=== PATIENT | female | born 1995 | race Two or more races ===

== ENCOUNTER 2016-09-17 03:08 | Emergency (ER) | payer MEDICAID ==
[~2016-09-17] VITALS: Ht 160 cm; Wt 73.5 kg
[~2016-09-17 03:08] MED LIST: ASPITAB34
[2016-09-17 03:46] LABS: Basophils # (auto) 0 uL; Basophils % (auto) 0.4 % (0.0-2.0); Eosinophils # (auto) 0.2 uL; Eosinophils % (auto) 1.7 % (0.0-7.0); Hematocrit 37.2 % (36.0-46.0); Hemoglobin 12.3 g/dL (12.2-16.2); Lymphocytes # (auto) 1.7 uL; Lymphocytes % (auto) 18.2 % (10.0-50.0); Mean Corpuscular Volume 93.8 fL (80.0-100.0); Mean Platelet Volume 8.6 fL (7.4-10.4); Monocytes # (auto) 0.4 uL; Monocytes % (auto) 4.5 % (0.0-12.0); Neutrophils # (auto) 7.1 uL; Neutrophils % (auto) 75.2 % (37.0-80.0); Platelet Count (auto) 312 10^3/uL (140-450); Red Cell Distribution Width 13.5 % (11.6-16.0); White Blood Cell 9.4 10^3/uL (4.4-10.8)
[2016-09-17 04:08] LABS: INR 0.91 (0.9-1.15); Partial Thromboplastin Time 28.3 sec (22.64-33.71); Prothrombin Time 9.4 sec (9.37-12.3)
[2016-09-17 04:18] LABS: Albumin 3.4 g/dL (3.4-5.0); Bilirubin, Total 0.1 mg/dL (0.2-1.0); Potassium 4.1 mmol/L (3.5-5.1); Total Protein 7.4 g/dL (6.4-8.2)
[2016-09-17 08:13] LABS: Urine Bilirubin Negative (Negative); Urine Color Yellow (Yellow); Urine Glucose Normal (Normal); Urine Mucus FEW (None Seen); Urine Nitrite Negative (Negative); Urine RBC 22 /hpf (0 - 4); Urine Squamous Epithelial Cell FEW /hpf (<5); Urine Urobilinogen Normal (Negative)
[2016-09-17 08:14] LABS: Urine Blood 1+ /uL (Negative); Urine Ketone 2+ (Negative)
[2016-09-17] MEDS ORDERED: cefTRIAXone 1GM/50ML D5W 50 ML IV ONE (09:00)
[2016-09-17 09:20] VITALS: BP 129/74
== END 2016-09-17 10:45 | disposition home or self-care (01) ==
LOC: ER 03:15
DX: O23.42 Unspecified infection of urinary tract in pregnancy, second trimester (principal); O26.852 Spotting complicating pregnancy, second trimester; O99.322 Drug use complicating pregnancy, second trimester; F12.10 Cannabis abuse, uncomplicated; Z3A.17 17 weeks gestation of pregnancy
CPT/HCPCS: 36415; 76805; 80053; 81001; 84702; 85025; 85049; 85610; 85730; 96365; 99285; J0696

== ENCOUNTER 2017-05-28 08:35 | Emergency (ER) | payer MEDICAID ==
[~2017-05-28] VITALS: Ht 160 cm; Wt 77.1 kg
[2017-05-28 09:06] VITALS: BP 155/79
[2017-05-28] MEDS ORDERED: cefTRIAXone SOD 1,000 MG VL IM ONE (09:30)
== END 2017-05-28 09:45 | disposition home or self-care (01) ==
LOC: ER 08:35
DX: R23.8 Other skin changes (principal); L08.9 Local infection of the skin and subcutaneous tissue, unspecified; Z79.899 Other long term (current) drug therapy
CPT/HCPCS: 96372; 99283; J0696

== ENCOUNTER 2017-09-13 09:01 | Inpatient (IN) | payer MEDICAID ==
[~2017-09-13] VITALS: Ht 160 cm; Wt 90.2 kg
[2017-09-13] MEDS ORDERED: SODIUM CHLORIDE 0.9% 1,000 ML IVB ONE (12:33)
[2017-09-13] MEDS ORDERED: cefTRIAXone 1GM/10ml IVPUSH 10 ML IV ONE (12:45)
[2017-09-13 13:04] LABS: Basophils # (auto) 0.1 uL; Basophils % (auto) 0.9 % (0.0-2.0); Eosinophils # (auto) 0.1 uL; Eosinophils % (auto) 1.1 % (0.0-7.0); Hematocrit 39.1 % (36.0-46.0); Hemoglobin 12.9 g/dL (12.2-16.2); Lymphocytes # (auto) 1.6 uL; Lymphocytes % (auto) 19.4 % (10.0-50.0); Mean Corpuscular Hemoglobin 29.4 pg (28.0-32.0); Mean Corpuscular Hgb Conc. 32.9 g/dL (32.0-36.0); Mean Corpuscular Volume 89.4 fL (80.0-100.0); Monocytes # (auto) 0.4 uL; Monocytes % (auto) 5.3 % (0.0-12.0); Neutrophils % (auto) 73.3 % (37.0-80.0); Platelet Count (auto) 307 10^3/uL (140-450); Red Blood Cells 4.37 10^6/uL (4.0-5.20); Red Cell Distribution Width 14.4 % (11.8-14.3); White Blood Cell 8.2 10^3/uL (4.4-10.8)
[2017-09-13 13:19] LABS: Alanine Aminotransferase 20 U/L (13-56); Albumin 3.5 g/dL (3.4-5.0); Alkaline Phosphatase 108 U/L (45-117); Anion Gap 11 (5-15); Aspartate Aminotransferase 14 U/L (15-37); BUN/Creatinine Ratio 23.5; Bilirubin, Total 0.4 mg/dL (0.2-1.0); Blood Urea Nitrogen 12 mg/dL (7-18); Calcium 8.3 mg/dL (8.5-10.1); Carbon Dioxide 22 mmol/L (21-32); Chloride 105 mmol/L (98-107); GFR African American 194 mL/min; GFR Non-African American 160 mL/min; Glucose 89 mg/dL (74-106); Magnesium 2.2 mg/dL (1.6-2.6); Potassium 3.8 mmol/L (3.5-5.1); Sodium 138 mmol/L (136-145); Total Protein 7.6 g/dL (6.4-8.2)
[2017-09-13 13:20] LABS: INR 0.89 (0.9-1.15); Partial Thromboplastin Time 30.6 sec (22.64-33.71); Prothrombin Time 9.7 sec (9.37-12.3)
[2017-09-13] MEDS ORDERED: TETANUS-DIPTH-ACEL PERTUSSIS 0.5ML SYRG IM ONE (13:30)
[2017-09-13] MEDS ORDERED: HYDROcodone-ACET 10/325MG TAB PO ONE (13:30)
[2017-09-13 13:39] LABS: Urine Bacteria NONE SEEN /hpf (None Seen); Urine Blood Negative /uL (Negative); Urine Hyaline Cast FEW /lpf (0 - 2); Urine Mucus FEW (None Seen); Urine Specific Gravity 1.027 (1.001-1.035); Urine WBC 3 /hpf (0 - 5)
[2017-09-13] MEDS ORDERED: HYDROcodone-ACET 5/325MG TAB PO PRN (16:00)
[2017-09-13] MEDS ORDERED: TEMAZEPAM 15 MG CAP PO PRN (16:00)
[2017-09-13] MEDS ORDERED: ONDANSETRON HCL 4 MG/2 ML VIAL IV PRN (16:00)
[2017-09-13] MEDS ORDERED: MORPHINE SULFATE 10 MG/ML INJ 1ML SDV IV PRN (16:00)
[2017-09-13] MEDS ORDERED: CLINDAMYCIN 300MG IV 50 ML IV ONE (16:00)
[2017-09-13] MEDS ORDERED: ACETAMINOPHEN 325 MG TAB PO PRN (16:00)
[2017-09-13] MEDS ORDERED: DOCUSATE SOD 100 MG CAP PO PRN (16:00)
[2017-09-13 18:00] VITALS: BP 107/53
[2017-09-13] MEDS ORDERED: CEPH500C PO (18:37)
[2017-09-13] MEDS ORDERED: SULF400T11 PO (18:37)
[2017-09-13] MEDS ORDERED: IBUP800T24 PO (18:37)
[2017-09-13] MEDS: FAMOTIDINE 20 MG TAB PO SCH (21:40)
[2017-09-13] MEDS: CLINDAMYCIN 300MG IV 50 ML IV SCH (21:40)
[2017-09-13] MEDS: SODIUM CHLOR 0.9% PF (SALINE LOCK) 10ML VIAL IV SCH (21:41)
[2017-09-13 22:00] VITALS: BP 134/72
[2017-09-14 05:08] VITALS: BP 115/58
[2017-09-14] MEDS: SODIUM CHLOR 0.9% PF (SALINE LOCK) 10ML VIAL IV SCH ×3 (05:39→21:31)
[2017-09-14] MEDS: CLINDAMYCIN 300MG IV 50 ML IV SCH ×3 (05:39→21:31)
[2017-09-14 06:06] LABS: Basophils # (auto) 0 uL; Basophils % (auto) 0.4 % (0.0-2.0); Eosinophils # (auto) 0.1 uL; Eosinophils % (auto) 1.8 % (0.0-7.0); Hematocrit 36.9 % (36.0-46.0); Hemoglobin 12.2 g/dL (12.2-16.2); Lymphocytes # (auto) 1.6 uL; Lymphocytes % (auto) 27.6 % (10.0-50.0); Mean Corpuscular Hemoglobin 29.9 pg (28.0-32.0); Mean Corpuscular Hgb Conc. 33.2 g/dL (32.0-36.0); Mean Corpuscular Volume 90.1 fL (80.0-100.0); Monocytes # (auto) 0.4 uL; Neutrophils # (auto) 3.7 uL; Neutrophils % (auto) 64.2 % (37.0-80.0); Nucleated Red Blood Cells % 0.1 %; Platelet Count (auto) 270 10^3/uL (140-450); Red Blood Cells 4.09 10^6/uL (4.0-5.20); Red Cell Distribution Width 14.6 % (11.8-14.3); White Blood Cell 5.8 10^3/uL (4.4-10.8)
[2017-09-14 06:31] LABS: BUN/Creatinine Ratio 31.4; Calcium 8.3 mg/dL (8.5-10.1); Potassium 3.9 mmol/L (3.5-5.1)
[2017-09-14 06:34] LABS: Bilirubin, Total 0.3 mg/dL (0.2-1.0); Total Protein 6.7 g/dL (6.4-8.2)
[2017-09-14 09:00] VITALS: BP 135/55
[2017-09-14] MEDS: cefTRIAXone 1GM/10ml IVPUSH 10 ML IV SCH (09:13)
[2017-09-14] MEDS: MULTIPLE VITAMIN TAB PO SCH (09:13)
[2017-09-14] MEDS: FAMOTIDINE 20 MG TAB PO SCH ×2 (09:13→21:31)
[2017-09-14 13:00] VITALS: BP 127/67
[2017-09-14] MEDS: BOOST PLUS 8 ounce PO SCH ×2 (13:49→19:27)
[2017-09-14 17:00] VITALS: BP 151/95
[2017-09-14 18:20] VITALS: BP 150/50
[2017-09-14 21:30] VITALS: BP 145/70
[2017-09-15 05:00] VITALS: BP 107/60
[2017-09-15 05:43] LABS: Basophils # (auto) 0 uL; Basophils % (auto) 0.7 % (0.0-2.0); Eosinophils # (auto) 0.2 uL; Eosinophils % (auto) 2.3 % (0.0-7.0); Hematocrit 36.2 % (36.0-46.0); Lymphocytes # (auto) 1.7 uL; Lymphocytes % (auto) 25.2 % (10.0-50.0); Mean Corpuscular Hemoglobin 29.8 pg (28.0-32.0); Mean Corpuscular Hgb Conc. 33.2 g/dL (32.0-36.0); Mean Corpuscular Volume 89.7 fL (80.0-100.0); Monocytes # (auto) 0.4 uL; Monocytes % (auto) 6.7 % (0.0-12.0); Neutrophils # (auto) 4.3 uL; Neutrophils % (auto) 65.1 % (37.0-80.0); Nucleated Red Blood Cells % 0.1 %; Platelet Count (auto) 276 10^3/uL (140-450); Red Blood Cells 4.04 10^6/uL (4.0-5.20); Red Cell Distribution Width 14.3 % (11.8-14.3); White Blood Cell 6.6 10^3/uL (4.4-10.8)
[2017-09-15 06:03] LABS: Calcium 8.5 mg/dL (8.5-10.1); Potassium 3.5 mmol/L (3.5-5.1)
[2017-09-15] MEDS: CLINDAMYCIN 300MG IV 50 ML IV SCH ×2 (06:04→13:22)
[2017-09-15 06:05] LABS: BUN/Creatinine Ratio 14.3
[2017-09-15] MEDS: SODIUM CHLOR 0.9% PF (SALINE LOCK) 10ML VIAL IV SCH ×2 (06:05→13:22)
[2017-09-15 09:00] VITALS: BP 118/64
[2017-09-15] MEDS: BOOST PLUS 8 ounce PO SCH ×2 (09:15→12:01)
[2017-09-15] MEDS: FAMOTIDINE 20 MG TAB PO SCH (09:25)
[2017-09-15] MEDS: MULTIPLE VITAMIN TAB PO SCH (09:25)
[2017-09-15] MEDS: cefTRIAXone 1GM/10ml IVPUSH 10 ML IV SCH (09:25)
== END 2017-09-15 14:35 | disposition home or self-care (01) | DRG 383 ==
LOC: ER 09:01 → OVERFLOW 09:02 → WEST WING 17:49
PROVIDERS: ADMIT Internal Medicine; ATTEND Internal Medicine
DX: L03.211 Cellulitis of face (principal); E44.0 Moderate protein-calorie malnutrition; H05.011 Cellulitis of right orbit; E87.1 Hypo-osmolality and hyponatremia; E88.09 Other disorders of plasma-protein metabolism, not elsewhere classified; N39.0 Urinary tract infection, site not specified; S00.261A Insect bite (nonvenomous) of right eyelid and periocular area, initial encounter; W57.XXXA Bitten or stung by nonvenomous insect and other nonvenomous arthropods, initial encounter; Z82.49 Family history of ischemic heart disease and other diseases of the circulatory system; Z83.3 Family history of diabetes mellitus; Y93.89 Activity, other specified; Y92.89 Other specified places as the place of occurrence of the external cause; Y99.8 Other external cause status
CPT/HCPCS: 36415; 70450; 71045; 80048; 80053; 81001; 83605; 83735; 84484; 85025; 85610; 85730; 87040; 90715; 94761; 96361; 96365; 96375; J3490

== ENCOUNTER → 2022-12-18 | Emergency (ER) | payer MEDICAID ==
[~2022-12-18] VITALS: Ht 162.6 cm; Wt 102.7 kg
[~2022-12-18] MED LIST changes: -ASPITAB34; +CEPH-510 PO; +CEPH500C PO; +IBUP800T27 PO; +SULF400T11 PO
[2022-12-18 06:37] VITALS: BP 143/85
[2022-12-18 07:18] LABS: Basophils # (auto) 0.1 10 ^3/uL (0-0.2); Basophils % (auto) 0.9 % (0.0-2.0); Eosinophils # (auto) 0.2 10 ^3/uL (0-0.8); Eosinophils % (auto) 2.6 % (0.0-7.0); Hematocrit 39.4 % (36.0-46.0); Hemoglobin 13.3 g/dL (12.2-16.2); Lymphocytes % (auto) 21.9 % (10.0-50.0); Mean Corpuscular Hemoglobin 30.9 pg (28.0-32.0); Mean Corpuscular Hgb Conc. 33.7 g/dL (32.0-36.0); Mean Corpuscular Volume 91.6 fL (80.0-100.0); Monocytes # (auto) 0.3 10 ^3/uL (0-1.3); Monocytes % (auto) 3.8 % (0.0-12.0); Neutrophils # (auto) 6.5 10 ^3/uL (1.6-8.6); Neutrophils % (auto) 70.8 % (37.0-80.0); Red Cell Distribution Width 14.5 % (11.8-14.3); White Blood Cell 9.1 10^3/uL (4.4-10.8)
[2022-12-18 07:20] LABS: Urine Bacteria FEW /hpf (None Seen); Urine Blood Negative /uL (Negative); Urine Mucus FEW (None Seen); Urine WBC 14 /hpf (0 - 5)
[2022-12-18 07:55] LABS: Albumin 3.1 g/dL (3.4-5.0); Calcium 9.2 mg/dL (8.5-10.1); Potassium 4.2 mmol/L (3.5-5.1)
[2022-12-18 07:57] LABS: BUN/Creatinine Ratio 17.8 (10.0-20.0)
[2022-12-18 08:00] LABS: Bilirubin, Total 0.2 mg/dL (0.2-1.0); Total Protein 7.3 g/dL (6.4-8.2)
== END | disposition left against medical advice (07) ==
LOC: ER 06:24
DX: O23.41 Unspecified infection of urinary tract in pregnancy, first trimester (principal); N39.0 Urinary tract infection, site not specified; R10.2 Pelvic and perineal pain; F12.10 Cannabis abuse, uncomplicated; Z3A.01 Less than 8 weeks gestation of pregnancy
CPT/HCPCS: 36415; 80053; 81001; 81025; 83690; 84702; 85025

== ENCOUNTER 2023-05-18 11:06 | Emergency (ER) | payer MEDICAID ==
[~2023-05-18] VITALS: Ht 160 cm; Wt 115.3 kg
[~2023-05-18 11:06] MED LIST changes: +IBUP-1456 PO; -IBUP800T27 PO
[2023-05-18 15:56] VITALS: BP 129/72; PULSE 113; RESP 20; TEMP 97.5; O2SAT 99
== END 2023-05-18 15:57 | disposition left against medical advice (07) ==
LOC: ER 11:06
DX: O26.892 Other specified pregnancy related conditions, second trimester (principal); R21 Rash and other nonspecific skin eruption; Z3A.27 27 weeks gestation of pregnancy; Z53.21 Procedure and treatment not carried out due to patient leaving prior to being seen by health care provider

== ENCOUNTER 2025-07-08 18:47 | Inpatient (IN) | payer MEDICAID ==
[~2025-07-08] VITALS: Ht 160 cm; Wt 119.2 kg
[2025-07-08 19:09] LABS: Hematocrit 40.9 % (36.0-46.0); Hemoglobin 13.9 g/dL (12.2-16.2); Mean Corpuscular Hemoglobin 30.6 pg (28.0-32.0); Mean Corpuscular Volume 90.1 fL (80.0-100.0); Nucleated Red Blood Cells % 0.2 %
[2025-07-08 19:20] LABS: Base Excess -2.4 mmol/L (-2.0-3.0)
[2025-07-08 19:25] LABS: Albumin 4.5 g/dL (3.2-4.8); Anion Gap 13 (5-15); BUN/Creatinine Ratio 9.3 (10.0-20.0); Calcium 9.6 mg/dL (8.7-10.4); Carbon Dioxide 21 mmol/L (20-31); Potassium 4.0 mmol/L (3.5-5.1); Total Protein 7.6 g/dL (5.7-8.2)
[2025-07-08 19:26] LABS: Bilirubin, Total 0.3 mg/dL (0.2-1.0)
[2025-07-08 19:31] LABS: Alanine Aminotransferase 65 U/L (7-40); Alkaline Phosphatase 220 U/L (46-116); Blood Urea Nitrogen 8 mg/dL (9-23); Chloride 95 mmol/L (98-107); Sodium 129 mmol/L (136-145)
[2025-07-08 19:35] LABS: Glucose 669 mg/dL (74-106)
--- NOTE | 2025-07-08 19:36 | ED.PDOC ---
History of present illness HPI Comments CAMRON: HPI: Poor Historian. 30-year-old female presents to emergency department for symptoms of polydipsia polyuria and feels dehydrated and some blurry vision and dry mouth for at least one-week. She thinks she is developing diabetes like her sister. She is not on any medications. Past Medical History: Denies any Past Surgical History: REVIEW OF SYSTEMS: CONSTITUTIONAL: Denies acute: fever, diaphoresis, chills, HEAD: Denies acute: headache, photophobia Eyes: Denies acute: Double vision, vision loss, eye pain, eye discharge. EARS: Denies acute: tinnitus, hearing loss, ear discharge, ear pain, THROAT: Denies acute: sore throat, swelling, difficulty swallowing , pain with swallowing, change in voice. NECK: Denies acute: neck pain, neck swelling, stiff neck. HEART: Denies acute : chest pain, palpitations, LUNGS: Denies acute: SOB, wheezing, cough, hemoptysis ABDOMEN: Denies acute: abdominal pain, , Vomiting, diarrhea, melena , hematemesis, hematochezia SKIN: Denies acute: rash, redness, lesions, itchiness. EXTREMITIES: Denies acute: calf pain, numbness, tingling, weakness, denies pain in extremity. Denies acute: Low back pain. Neuro: Denies acute: focal neurological deficit, motor or sensory focal neurological deficit, tremors, seizure like activity, confusion, dizziness, change in mental status, loss of bowel or bladder function, cauda equina like symptoms. : Denies acute: dysuria, hematuria, flank pain, increase in urinary frequency. PSYCH: Denies acute: hallucination, suicidal ideation, homicidal ideation. FEMALE: Denies acute: abnormal vaginal bleeding, foul odor, unusual discharge. PHYSICAL EXAM: General: ----mild----acute distress, awake and alert. Head: normocephalic, atraumatic. No raccoon's eyes, no art sign. Neck: supple, trachea is midline, no swelling. Throat: Normal phonation. Eyes:, no erythema, no purulent discharge, no proptosis, no icterus. Heart: regular tachycardic,, no significant murmur appreciated. Lungs: no apparent respiratory distress, Able to speak in full sentences. No wheezing, no rhonchi, no crackles. No stridors Clear to auscultation bilaterally. Abdomen: non tender to palpation, non distended, soft, no guarding, no rebound, + bowel sounds. Obese Neuro: Awake, Alert, oriented to name, self, situation, follows commands GCS=15. Speech is normal. Skin: no petechia, no purpura, no cyanosis, non-pale, not jaundice. Lower extremities: --no - Pitting edema no deformity, no focal swelling, no calf TTP. Makes eye contact. moves all four extremities. Face: no apparent facial droop. Ambulating in the ED independently. Ears: Normal appearing TM b/l, ED COURSE: DISCLAIMER: This medical document was created using an electronic medical record system with voice recognition software and computerized dictation system. Although this document has been carefully reviewed, there might still be some phonetic and typographical errors. Occasional wrong-word or "sound-alike" substitutions may have occurred due to the inherent limitations of voice recognition software. These areas are purely typographical due to imperfections of the software programs and do not reflect any compromise in the patient's medical care. Please read the chart carefully and recognize, using context, where these substitutions have occurred. Chief Complaint: Hyperglycemia Time Seen by MD: 18:53 Primary Care Provider: DR ZAVALA History of present illness: Nurses Notes, Allergies Allergies: Coded Allergies: NO KNOWN ALLERGIES (Unverified , 08/21/11) Home Meds Active Scripts Cephalexin ( Keflex 500) 500 Mg Cap, 1 CAP PO TID for 7 Days, #21 CAP Prov:EVELYN PRABHAKAR MD 12/18/22 Reported Medications Cephalexin Monohydrate (Cephalexin) 500 Mg Cap, 500 MG PO Q12HR, MG 09/13/17 Sulfamethoxazole-Trimethoprim (Bactrim) 1 Tab Tab, 1 TAB PO BID, MG 09/13/17 Ibuprofen (Ibuprofen) 800 Mg Tab, 800 MG PO Q6HP PRN for MILD PAIN OR TEMP>100.4, MG 09/13/17 Information Source: Patient Mode of Arrival: Ambulatory Past Medical History PAST MEDICAL HISTORY: Denies 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 Was a procedure done?: No Differential Diagnosis (DM) Differential Diagnosis: Dehydration, Diabetic Coma, DKA, Electrolyte Abnormality, Encephalopathy, Gastritis, Gastroenteritis, Hepatitis, Hyperglycemia, Hyperosmolar State, Hypoglycemia, Pancreatitis, Pyelonephritis, UTI X-Ray, Labs, Meds, VS Vital Signs Date Time Temp Pulse Resp B/P (MAP) Pulse Ox O2 Delivery O2 Flow Rate FiO2 07/08/25 18:51 99.1 114 18 150/98 98 99.1 Lab Test 07/08/25 20:14 07/08/25 19:15 07/08/25 19:01 07/08/25 18:56 Range/Units Urine Color Colorless Yellow Urine Clarity Clear Clear Urine pH 6.0 5.0-9.0 Urine Specific [place] 1.039 H 1.001-1.035 Urine Protein Negative Negative Urine Ketones 1+ H Negative Urine Blood 2+ H Negative /uL Urine Nitrite Negative Negative Urine Bilirubin Negative Negative Urine Urobilinogen Normal Negative mg/dL Urine Leukocyte Esterase 2+ Negative /uL Urine RBC 5 0 - 4 /hpf Urine Microscopic WBC 11 H 0-5 /HPF Urine Squamous Epithelial Cells Few <5 /hpf Urine Bacteria None seen None Seen /hpf Urine Yeast with Hyphae Present /hpf Urine Yeast (Budding) Moderate None Seen /hpf Urine Glucose 4+ H Normal mg/dL Urine Opiates Screen Neg NEGATIVE Urine Fentanyl Screen Neg NEGATIVE Urine Barbiturates Screen Neg NEGATIVE Urine Phencyclidine Screen Neg NEGATIVE Urine Amphetamines Screen Pos NEGATIVE Urine Benzodiazepines Screen Neg NEGATIVE Urine Cocaine Screen Neg NEGATIVE Urine Cannabinoids Screen Neg NEGATIVE Blood Gas Specimen Type Arterial Blood Gas Sample Site Right radial Blood Gas Patient Temperature 37.0 Arterial Blood Date Drawn [id number] Arterial Blood pH 7.460 H 7.350-7.450 Arterial Blood Partial Pressure CO2 28.9 L 32.0-45.0 mmHg Arterial Blood Partial Pressure O2 90.1 83.0-108.0 mmHg Arterial Blood HCO3 20.1 L 21.0-28.0 mmol/L Arterial Blood Oxygen Saturation 96.4 94.0-98.0 % Arterial Blood Base Excess -2.4 L -2.0-3.0 mmol/L Arterial Blood Oxyhemoglobin 94.8 94.0-98.0 % Arterial Blood Carboxyhemoglobin 1.1 0.5-1.5 % Arterial Blood Methemoglobin 0.6 0.0-1.5 % Manoj Test Yes Blood Gas Total Hemoglobin 14.60 12.0-16.0 g/dL Blood Gas Modality Room air FiO2 % 21.0 White Blood Count 10.0 4.4-10.8 10^3/uL Red Blood Count 4.54 4.0-5.20 10^6/uL Hemoglobin 13.9 12.2-16.2 g/dL Hematocrit 40.9 36.0-46.0 % Mean Corpuscular Volume 90.1 80.0-100.0 fL Mean Corpuscular Hemoglobin 30.6 28.0-32.0 pg Mean Corpuscular Hemoglobin Concent 34.0 32.0-36.0 g/dL Red Cell Distribution Width 13.5 11.8-14.3 % Platelet Count 282 140-450 10^3/uL Mean Platelet Volume 9.4 6.9-10.8 fL Neutrophils (%) (Auto) 71.0 37.0-80.0 % Lymphocytes (%) (Auto) 23.4 10.0-50.0 % Monocytes (%) (Auto) 3.7 0.0-12.0 % Eosinophils (%) (Auto) 1.2 0.0-7.0 % Basophils (%) (Auto) 0.7 0.0-2.0 % Neutrophils # (Auto) 7.1 1.6-8.6 10 ^3/uL Lymphocytes # (Auto) 2.3 0.4-5.4 10 ^3/uL Monocytes # (Auto) 0.4 0-1.3 10 ^3/uL Eosinophils # (Auto) 0.1 0-0.8 10 ^3/uL Basophils # (Auto) 0.1 0-0.2 10 ^3/uL Nucleated Red Blood Cells 0.2 % Sodium Level 129 L 136-145 mmol/L Potassium Level 4.0 3.5-5.1 mmol/L Chloride Level 95 L 98-107 mmol/L Carbon Dioxide Level 21 20-31 mmol/L Anion Gap 13 5-15 Blood Urea Nitrogen 8 L 9-23 mg/dL Creatinine 0.86 0.550-1.02 mg/dL Glomerular Filtration Rate Calc 93 >90 mL/min BUN/Creatinine Ratio 9.3 L 10.0-20.0 Serum Glucose 669 *H 74-106 mg/dL Hemoglobin A1c 10.9 H <5.7 % A1C Serum Osmolality 316 H 278-298 mOsm/kg Calcium Level 9.6 8.7-10.4 mg/dL Magnesium Level 1.8 1.6-2.6 mg/dL Total Bilirubin 0.3 0.2-1.0 mg/dL Direct Bilirubin < 0.1 <0.3 mg/dL Aspartate Amino Transferase (AST) 40 13-40 U/L Alanine Aminotransferase (ALT) 69 H 7-40 U/L Alkaline Phosphatase 226 H 46-116 U/L Total Protein 7.4 5.7-8.2 g/dL Albumin 4.5 3.2-4.8 g/dL Beta-Hydroxybutyric Acid 0.405 H < 0.4 mmol/L Thyroid Stimulating Hormone (TSH) 2.26 0.55-4.78 uIU/mL POC Glucose > 600 *H 70-106 mg/dl Current Medications Medications (Trade) Dose Ordered Sig/Shun Route Start Time Stop Time Status Last Admin Insulin Human Regular (InsuLIN R) 10 units ONCE ONCE IV 07/08/25 19:15 07/08/25 19:16 DC 07/08/25 20:53 Sodium Chloride 1,000 ml @ 1,000 mls/hr Q1H ONCE IV 07/08/25 19:15 07/08/25 20:14 DC 07/08/25 20:49 [place] [id number] Ph: [phone] DIAGNOSTIC IMAGING Diagnostic Imaging Report : [id number] Signed PATIENT: RASHMI LYON ACCT: [id number] UNIT: [id number] : 1995 LOC: OVERFLOW ROOM / BED: [address] [place] [address] AGE / SEX: 30 / F ADM STATUS: ADM IN SERVICE 0400 ORDERING PHYSICIAN: TASHIA BARRERA RESIDENT PROCEDURE(s): LIVUS - LIVER REASON: ELEVATED LFTS ORDER NUMBER(s): [id number], ACCESSION NUMBER(s): [id number] ULTRASOUND DOPPLER CLINICAL HISTORY: ELEVATED LFTS TECHNIQUE: Doppler examination of the abdomen was performed. COMPARISON: US ABDOMEN COMPLETE on DOS: 06/18/23 FINDINGS: Evaluation is limited due to overlying bowel gas. The liver measures 20.7 cm. There is increased hepatic echogenicity. There is hepatopetal flow. Small stones are seen within the gallbladder. The gallbladder wall measures 2 mm. There is no sonographic Montiel. sign. Common bile duct measures 5 mm. The right kidney measures 12.3 cm without calculi, hydronephrosis, or renal mass. IMPRESSION: 1. Cholelithiasis without sonographic evidence of acute cholecystitis. 2. Hepatomegaly and increased hepatic echogenicity may reflect hepatic steatosis or intrinsic hepatocellular disease. ATED BY: JASON RIGGS MD DICTATED DATE/TIME: 07/09/25105 SIGNED BY: JASON RIGGS MD SIGNED DATE/TIME: 07/09/25105 CC: Time of 1ST Reevaluation: 00:00 Reevaluation 1ST: Unchanged Patient Education/Counseling: Diagnosis, Treatment Family Education/Counseling: Other Comments MDM: patient presented with the above HPI.---new onset diabetes---workup was i nitiated. patient was found with the above mentioned diagnosis. the following medications were ordered: please refer to order lists of meds and tests obtained by myself Dr. Long. Patient ED course and VS have been stabilized. Patient has been reassessed in the ED and remained in a stable condition. Pertinent incidental findings were discussed with the patient and/or family. Patient/family voices understanding and is agreeable with plan. Patient has been observed in the ED adequate length of time to insure improvement/stability. Escalation of care considered: Consideration of escalation to observation or admission Patient was given fluids and insulin. Patient was ADMITTED to the medicine team for further evaluation and treatment of their presentation. All the reports of any imaging studies that were ordered by myself were reviewed by myself. SEPSIS Sepsis Screen Date sepsis recognized/suspect: Jul 08, 2025 Time Sepsis recognized/suspect: 1853 Recent Procedure: No On Antibiotic Therapy: No Respiratory Rate >20: No Heart Rate >90: No Temp<36 C (96.8 F) or >38.3 C: No SBP <90 or MAP <65 mmHG: No New Acute Mental Status Change: No Is the patient on CPAP, BIPAP,: No Physician Orders Ground Crew Chief (07/08/25 ) Ground Crew Chief (07/08/25 ) Abg W/ Co-Ox (07/08/25 19:06) Vital Signs Date Time Temp Pulse Resp B/P (MAP) Pulse Ox O2 Delivery O2 Flow Rate FiO2 07/08/25 18:51 99.1 114 18 150/98 98 99.1 Laboratory Tests Test 07/08/25 19:01 White Blood Count 10.0 10^3/uL (4.4-10.8) Medications Medications Dose Ordered Sig/Shun Route Start Time Stop Time Status Last Admin Dose Admin Insulin Human Regular 10 units ONCE ONCE IV 07/08/25 19:15 07/08/25 19:16 DC 07/08/25 20:53 Sodium Chloride 1,000 ml @ 1,000 mls/hr Q1H ONCE IV 07/08/25 19:15 07/08/25 20:14 DC 07/08/25 20:49 Departure 1 Departure Time of Disposition: 19:35 Impression: Primary Impression: Hyperglycemia Additional Impressions: Diabetes mellitus, new onset Cholelithiasis Hepatomegaly Disposition: ADMITTED INPATIENT Admit to: Tele Condition: Guarded Discharged With: Self Critical Care Note Critical Care Time?: Yes (45 min-critical care time only) I personally scribed for NGOC LONG DO ([email or web address]) on 07/09/25 at 04:42. Electronically submitted by Juan Jose Boyce ([email or web address]). NGOC LONG DO Jul 08, 2025 19:36
[2025-07-08] MEDS: SODIUM CHLORIDE 0.9% 2,000 ML IV SCH (20:30)
[2025-07-08] MEDS: SODIUM CHLORIDE 0.9% 1,000 ML IV SCH (20:30)
[2025-07-08 20:40] VITALS: PULSE 102; RESP 20; O2SAT 96
[2025-07-08] MEDS: SODIUM CHLORIDE 0.9% 1,000 ML IV ONE (20:49)
[2025-07-08] MEDS: InsuLIN REG 1unit/0.01ml Soln (100units/ml) IV ONE (20:53)
--- NOTE | 2025-07-08 20:56 | DVHHP2 ---
History of Present Illness History of Present Illness Patient is 30 years old female with no significant past medical history came with the complaint of polyuria, polydipsia, polyphagia. As per patient she has been having polyuria, polyphagia, polydipsia for last 1 week. Patient also reported she was feeling dry mouth, dehydrated, lightheadedness, blurry vision for the same duration. On further inquiry patient reported having dysuria for last 4 days with increased urgency and frequency of micturition. Patient also reported that she has been having diarrhea for last 1 week, watery, 8-10 times a day, nonbloody. Nausea but no vomiting. Patient reported she never had this kind of symptoms before. Patient's father and sister has diabetes mellitus and taking insulin. Patient denied any fever, abdominal pain, chest pain, shortness of breath, dysarthria. Initial lab workup revealed blood sugar >600, sodium 129, ALT 65, creatinine phosphatase 220, beta hydroxybutyrate 0.405. Serum osmolality 316, ABG revealed pH 7.46, pCO2 28.9, bicarbonate 20.1. Urinalysis revealed leukocyte esterase 2+, WBC 11. PMH-none PSH- x2, Family history-father and sister has diabetes mellitus Allergy- NKDA Personal History/ Social History- occasional smoking, occasional alcohol drinking, 1 beer per day, last drinking 2 days before, use marijuana occasionally last was 1 week before, methamphetamine 1 day before Review of Systems Review of Systems Cardiovascular- deny acute chest pain or shortness of breath or cough or palpitation Respiratory denies cough or short of breath or wheezing Musculoskeletal-denies acute joint swelling or tenderness or redness Neurological- denies acute dysarthria, dysphagia Psychiatry- denies depression or SI or HI Skin- denies acute rash or purpura Allergies: Coded Allergies: NO KNOWN ALLERGIES (Unverified , 08/21/11) Medications Current Medications Medications Dose Ordered Sig/Shun Route Start Time Stop Time Status Last Admin Dose Admin Sodium Chloride 2,000 ml @ 60 mls/hr Q24H IV 07/08/25 20:30 Sodium Chloride 1,000 ml @ 150 mls/hr Q6H40M IV 07/08/25 20:30 Ondansetron HCl 4 mg Q4HP PRN IV 07/08/25 20:30 Enoxaparin Sodium 40 mg DAILY SC 07/09/25 10:00 Acetaminophen 650 mg Q6HP PRN PO 07/08/25 20:30 Diagnostic Test (Pha) 1 strip IQ4HR 07/09/25 00:00 Insulin Human Regular IQ4HR SC 07/09/25 00:00 Dextrose 50 ml UD PRN IV 07/08/25 21:00 Metronidazole 100 ml @ 100 mls/hr Q8HR IV 07/08/25 21:00 Ceftriaxone Sodium 50 ml @ 100 mls/hr DAILY@09 IV 07/08/25 21:00 Folic Acid 1 mg DAILY PO 07/09/25 10:00 UNV Pantoprazole Sodium 40 mg DAILY@0600 PO 07/09/25 06:00 UNV Exam Vital Signs Vital Signs Date Time Temp Pulse Resp B/P (MAP) Pulse Ox O2 Delivery O2 Flow Rate FiO2 07/08/25 20:40 98.7 102 20 120/77 (91) 96 98.7 Exam General examination- awake, alert, oriented, dry mouth HEENT- PEERLA, no acute nasal discharge Cardiovascular- S1-S2 audible, rate and rhythm regular, no murmur Respiratory- CTAB, no wheeze or rhonchi Gastrointestinal-nontender, bowel sound+. Nondistended Musculoskeletal-no acute joint swelling or tenderness or redness Lower extremity- no leg edema Neurological- cranial nerves intact, no acute dysarthria or dysphagia Psychiatry- denies depression or SI or HI Skin- no acute rash or purpura Labs/Xrays Labs Test 07/08/25 19:15 07/08/25 19:01 07/08/25 18:56 Range/Units Blood Gas Specimen Type Arterial Blood Gas Sample Site Right radial Blood Gas Patient Temperature 37.0 Arterial Blood Date Drawn [id number] Arterial Blood pH 7.460 H 7.350-7.450 Arterial Blood Partial Pressure CO2 28.9 L 32.0-45.0 mmHg Arterial Blood Partial Pressure O2 90.1 83.0-108.0 mmHg Arterial Blood HCO3 20.1 L 21.0-28.0 mmol/L Arterial Blood Oxygen Saturation 96.4 94.0-98.0 % Arterial Blood Base Excess -2.4 L -2.0-3.0 mmol/L Arterial Blood Oxyhemoglobin 94.8 94.0-98.0 % Arterial Blood Carboxyhemoglobin 1.1 0.5-1.5 % Arterial Blood Methemoglobin 0.6 0.0-1.5 % Manoj Test Yes Blood Gas Total Hemoglobin 14.60 12.0-16.0 g/dL Blood Gas Modality Room air FiO2 % 21.0 White Blood Count 10.0 4.4-10.8 10^3/uL Red Blood Count 4.54 4.0-5.20 10^6/uL Hemoglobin 13.9 12.2-16.2 g/dL Hematocrit 40.9 36.0-46.0 % Mean Corpuscular Volume 90.1 80.0-100.0 fL Mean Corpuscular Hemoglobin 30.6 28.0-32.0 pg Mean Corpuscular Hemoglobin Concent 34.0 32.0-36.0 g/dL Red Cell Distribution Width 13.5 11.8-14.3 % Platelet Count 282 140-450 10^3/uL Mean Platelet Volume 9.4 6.9-10.8 fL Neutrophils (%) (Auto) 71.0 37.0-80.0 % Lymphocytes (%) (Auto) 23.4 10.0-50.0 % Monocytes (%) (Auto) 3.7 0.0-12.0 % Eosinophils (%) (Auto) 1.2 0.0-7.0 % Basophils (%) (Auto) 0.7 0.0-2.0 % Neutrophils # (Auto) 7.1 1.6-8.6 10 ^3/uL Lymphocytes # (Auto) 2.3 0.4-5.4 10 ^3/uL Monocytes # (Auto) 0.4 0-1.3 10 ^3/uL Eosinophils # (Auto) 0.1 0-0.8 10 ^3/uL Basophils # (Auto) 0.1 0-0.2 10 ^3/uL Nucleated Red Blood Cells 0.2 % Sodium Level 129 L 136-145 mmol/L Potassium Level 4.0 3.5-5.1 mmol/L Chloride Level 95 L 98-107 mmol/L Carbon Dioxide Level 21 20-31 mmol/L Anion Gap 13 5-15 Blood Urea Nitrogen 8 L 9-23 mg/dL Creatinine 0.86 0.550-1.02 mg/dL Glomerular Filtration Rate Calc 93 >90 mL/min BUN/Creatinine Ratio 9.3 L 10.0-20.0 Serum Glucose 669 *H 74-106 mg/dL Calcium Level 9.6 8.7-10.4 mg/dL Magnesium Level 1.8 1.6-2.6 mg/dL Total Bilirubin 0.3 0.2-1.0 mg/dL Aspartate Amino Transferase (AST) 37 13-40 U/L Alanine Aminotransferase (ALT) 65 H 7-40 U/L Alkaline Phosphatase 220 H 46-116 U/L Total Protein 7.6 5.7-8.2 g/dL Albumin 4.5 3.2-4.8 g/dL Beta-Hydroxybutyric Acid 0.405 H < 0.4 mmol/L POC Glucose > 600 *H 70-106 mg/dl SEPSIS Sepsis Screen Date sepsis recognized/suspect: Jul 08, 2025 Time Sepsis recognized/suspect: 1853 Recent Procedure: No On Antibiotic Therapy: No Respiratory Rate >20: No Heart Rate >90: No Temp<36 C (96.8 F) or >38.3 C: No SBP <90 or MAP <65 mmHG: No New Acute Mental Status Change: No Is the patient on CPAP, BIPAP,: No Physician Orders Equity Trader (07/08/25 ) Urinalysis (07/08/25 18:55) Equity Trader (07/08/25 ) Abg W/ Co-Ox (07/08/25 19:06) Admit (07/08/25 20:19) Sodium Chloride 0.9% (07/08/25 20:30) Sodium Chloride 0.9% (07/08/25 20:30) Ondansetron Hcl (Zofran) (07/08/25 20:30) Enoxaparin Sodium (Lovenox) (07/09/25 10:00) Complete Blood Count (07/09/25 04:00) Comprehensive Metabolic Panel (07/09/25 04:00) Acetaminophen Tablet (Tylenol Tablet) (07/08/25 20:30) Clear Liq Diet (07/09/25 Breakfast) Notify Of Changes From Base (07/08/25 20:19) Glucose Blood (Accu-Chek Comfort Curve T (07/09/25 00:00) Insulin R (Human) (Insulin R) (07/09/25 00:00) Dextrose 50% Syringe (07/08/25 21:00) Metronidazole 500mg/100ml (Flagyl 500mg/ (07/08/25 21:00) Ceftriaxone 1gm/50ml (Rocephin) (07/08/25 21:00) Thiamine Inj (07/08/25 21:00) Thiamine Tab (07/08/25 21:00) Folic Acid (07/08/25 21:00) Folic Acid Tablet (07/09/25 10:00) Drug Screen (07/08/25 20:47) Blood Alcohol (07/08/25 20:47) Magnesium (07/08/25 20:47) Lipase (07/08/25 20:51) C-Peptide (07/08/25 20:51) Pantoprazole Tablet (Protonix Tablet) (07/09/25 06:00) Hepatic Panel (07/08/25 20:53) Stool Wbc (07/08/25 20:53) Stool Bacterial Culture (07/08/25 20:53) Ova & Parasite Exam (07/08/25 20:53) Osmolality, Serum (07/08/25 20:54) Osmolality Urine (07/08/25 20:54) Vital Signs Date Time Temp Pulse Resp B/P (MAP) Pulse Ox O2 Delivery O2 Flow Rate FiO2 07/08/25 20:40 98.7 102 20 120/77 (91) 96 98.7 07/08/25 18:51 99.1 114 18 150/98 98 99.1 Laboratory Tests Test 07/08/25 19:01 White Blood Count 10.0 10^3/uL (4.4-10.8) Medications Medications Dose Ordered Sig/Shun Route Start Time Stop Time Status Last Admin Dose Admin Insulin Human Regular 10 units ONCE ONCE IV 07/08/25 19:15 07/08/25 19:16 DC 07/08/25 20:53 10 UNITS Sodium Chloride 1,000 ml @ 1,000 mls/hr Q1H ONCE IV 07/08/25 19:15 07/08/25 20:14 DC 07/08/25 20:49 1,000 MLS/HR Assessment/Plan Assessment/Plan Assessment and plan # hyperosmolar hyperglycemic state #Uncontrolled diabetes mellitus type 1 versus type 2-new onset #Polyuria #Polydipsia #Polyphagia -blood sugar> 600 -hemoglobin A1c 10.9 -beta hydroxybutyrate 0.405 -ordered IV normal saline bolus and followed by maintenance -ordered insulin drip -monitor blood sugar -monitor vitals -ordered C-peptide level #Acute gastroenteritis -continue IV fluid as prescribed -ordered IV Zosyn -monitor vitals -ordered stool for WBC, stool bacterial culture, ova and parasite # UTI -urinalysis revealed leukocyte esterase 2+, WBC 11, -pending urine CS -continue current antibiotic # morbid obesity -patient was counseled about the effect of obesity on health # respiratory alkalosis - will continue monitoring # pseudohyponatremia likely due to hypoglycemia -continue IV fluid as prescribed # history of alcoholism -CIWA score -ordered IV banana fluid -ordered thiamine and folic acid # history of substance abuse, marijuana and methamphetamine -UDS positive for amphetamine -patient was counseled about the effect of substance abuse on health Diet-low carb diet PCP-patient could not mentioned any PCP's name Goals of care, Code status full code ; discussed with >15 minutes PUD prophylaxis: Pantoprazole DVT prophylaxis: Lovenox Plan discussed with Dr. Webb , nursing staff, patient Total time spent on patient evaluation, chart review, assessment and plan, discussion discussion >35 minutes Plan discussed with: Patient, Other (RN) My Orders Orders - TASHIA BARRERA RESIDENT Procedure Category Date Status Time Admit ADMIT 07/08/25 Transmitted 20:19 Sodium Chloride 0.9% PHA 07/08/25 In Process 20:30 Sodium Chloride 0.9% PHA 07/08/25 In Process 20:30 Ondansetron Hcl PHA 07/08/25 In Process (Zofran) 20:30 Enoxaparin Sodium PHA 07/09/25 In Process (Lovenox) 10:00 Complete Blood Count LAB 07/09/25 Verified 04:00 Comprehensive LAB 07/09/25 Verified Metabolic Panel 04:00 Acetaminophen Tablet PHA 07/08/25 In Process (Tylenol Tablet) 20:30 Clear Liq Diet DIET 07/09/25 Transmitted Breakfast Notify Of Changes GAY 07/08/25 In Process From Base 20:19 Glucose Blood PHA 07/09/25 In Process (Accu-Chek Comfort 00:00 Insulin R (Human) PHA 07/09/25 In Process (Insulin R) 00:00 Dextrose 50% Syringe PHA 07/08/25 In Process 21:00 Metronidazole PHA 07/08/25 In Process 500mg/100ml (Flagyl 21:00 Ceftriaxone 1gm/50ml PHA 07/08/25 In Process (Rocephin) 21:00 Thiamine Inj PHA 07/08/25 In Process 21:00 Thiamine Tab PHA 07/08/25 Logged 21:00 Folic Acid PHA 07/08/25 Logged 21:00 Folic Acid Tablet PHA 07/09/25 Logged 10:00 Drug Screen LAB 07/08/25 Logged 20:47 Blood Alcohol LAB 07/08/25 Logged 20:47 Magnesium LAB 07/08/25 Logged 20:47 Lipase LAB 07/08/25 Logged 20:51 C-Peptide LAB 07/08/25 Logged 20:51 Pantoprazole Tablet PHA 07/09/25 Logged (Protonix Tablet) 06:00 Hepatic Panel LAB 07/08/25 Logged 20:53 Stool Wbc LAB 07/08/25 Logged 20:53 Stool Bacterial NELSON 07/08/25 Logged Culture 20:53 Ova & Parasite Exam NELSON 07/08/25 Logged 20:53 Osmolality, Serum LAB 07/08/25 Transmitted 20:54 Osmolality Urine LAB 07/08/25 Transmitted 20:54 Date of Service: Jul 08, 2025 Billing Provider: ALBERTO WEBB MD Common Visit Codes: [id number] INP/OBS CARE (HIGH) Secondary Visit Codes: [id number] CARE PLAN 30 MINUTES TASHIA BARRERA RESIDENT Jul 08, 2025 20:56
[2025-07-08] MEDS ORDERED: DEXTROSE (50%) 50ML SYRG IV PRN (21:00)
[2025-07-08] MEDS: FOLIC ACID 1 MG in D5W 5% 50 ML INJ ONE (21:14)
[2025-07-08] MEDS: THIAMINE HCL 100 MG TAB PO ONE (21:14)
[2025-07-08] MEDS: LORazepam 2MG/ML-1ML VIAL IV SCH (21:15)
[2025-07-08] MEDS: FOLIC ACID 1 MG TAB PO ONE (21:21)
[2025-07-08] MEDS: THIAMINE 100mg/ml INJ (200mg/2ml VIAL) IV ONE (21:21)
[2025-07-08] MEDS: MAGNESIUM SULFATE 1GM/100ML 100 ML IV ONE (21:57)
[2025-07-08 22:22] LABS: Magnesium 1.8 mg/dL (1.6-2.6)
[2025-07-08 22:45] LABS: Albumin 4.5 g/dL (3.2-4.8); Total Protein 7.4 g/dL (5.7-8.2)
[2025-07-08 22:46] LABS: Bilirubin, Total 0.3 mg/dL (0.2-1.0)
[2025-07-08 22:47] LABS: Alanine Aminotransferase 69 U/L (7-40); Alkaline Phosphatase 226 U/L (46-116); Bilirubin, Direct < 0.1 mg/dL (<0.3)
[2025-07-08 23:20] VITALS: BP 124/73; PULSE 96; RESP 18; TEMP 98.4; O2SAT 96
[2025-07-08 23:23] VITALS: BP 124/73; PULSE 96; RESP 18; TEMP 98.4; O2SAT 96
[2025-07-08 23:28] LABS: Chloride 102 mmol/L (98-107); Potassium 3.7 mmol/L (3.5-5.1)
[2025-07-08 23:29] LABS: Anion Gap 15 (5-15); Calcium 8.9 mg/dL (8.7-10.4)
[2025-07-08 23:32] LABS: Carbon Dioxide 17 mmol/L (20-31); Sodium 134 mmol/L (136-145)
[2025-07-08 23:34] LABS: BUN/Creatinine Ratio 10.6 (10.0-20.0)
[2025-07-08 23:39] LABS: Blood Urea Nitrogen 7 mg/dL (9-23)
[2025-07-08 23:42] LABS: Glucose 425 mg/dL (74-106)
[2025-07-09] VITALS (8 sets, daily range): BP systolic 116–138; BP diastolic 63–91; PULSE 78–93; RESP 16–21; TEMP 97–98.2; O2SAT 94–97
[2025-07-09] MEDS: ACCU-CHEK COMFORT CURVE STRIP VI SCH ×4 (00:06→17:16)
[2025-07-09] MEDS: ONDANSETRON HCL 4 MG/2 ML VIAL IV PRN (01:05)
--- NOTE | 2025-07-09 01:09 | DVH ---
ULTRASOUND DOPPLER CLINICAL HISTORY: ELEVATED LFTS TECHNIQUE: Doppler examination of the abdomen was performed. COMPARISON: US ABDOMEN COMPLETE on DOS: 06/18/23 FINDINGS: Evaluation is limited due to overlying bowel gas. The liver measures 20.7 cm. There is increased hepatic echogenicity. There is hepatopetal flow. Small stones are seen within the gallbladder. The gallbladder wall measures 2 mm. There is no sonographic Montiel. sign. Common bile duct measures 5 mm. The right kidney measures 12.3 cm without calculi, hydronephrosis, or renal mass. IMPRESSION: 1. Cholelithiasis without sonographic evidence of acute cholecystitis. 2. Hepatomegaly and increased hepatic echogenicity may reflect hepatic steatosis or intrinsic hepatocellular disease.
[2025-07-09] MEDS: SODIUM CHLORIDE 0.9% 1,000 ML IV ONE (01:40)
[2025-07-09 01:44] LABS: Amphetamine Screen, Urine Pos (NEGATIVE); Barbiturate Scree,Urine Neg (NEGATIVE); Benzodiazephine Screen, Urine Neg (NEGATIVE); Cannabinoid Screen, Urine Neg (NEGATIVE); Cocaine Screen, Urine Neg (NEGATIVE); Opiate Scree,Urine Neg (NEGATIVE); Phencyclidine Screen, Urine Neg (NEGATIVE)
[2025-07-09 01:49] LABS: Urine Budding Yeast MODERATE /hpf (None Seen); Urine Hyphae Yeast PRESENT /hpf; Urine Protein, UAD Negative (Negative)
[2025-07-09] MEDS: PIPERACILLIN-TAZOB 3.375GM 100 ML IV SCH (02:45)
[2025-07-09] MEDS: INSULIN LANTUS (GLARGINE) 1 /0.01ml (100units/ml) SC ONE ×2 (03:00→13:43)
[2025-07-09] MEDS ORDERED: DEXTROSE (50%) 50ML SYRG IV PRN ×2 (03:00→11:15)
[2025-07-09] MEDS: POTASSIUM CHL 20MEQ/100ML 100 ML IV ONE (05:00)
[2025-07-09] MEDS: PANTOPRAZOLE 40 MG TAB PO SCH (05:37)
[2025-07-09] MEDS: SOD CHL 0.9%/ KCL 20MEQ 1,000 ML IV ONE (06:30)
[2025-07-09] MEDS: INSULIN DRIP 100 UNIT/100ML 100 ML IV SCH (06:30)
[2025-07-09 06:50] LABS: Hematocrit 35.7 % (36.0-46.0); Hemoglobin 12.1 g/dL (12.2-16.2); Mean Corpuscular Hemoglobin 30.1 pg (28.0-32.0); Mean Corpuscular Volume 88.7 fL (80.0-100.0); Nucleated Red Blood Cells % 0.0 %
[2025-07-09 07:11] LABS: Albumin 3.7 g/dL (3.2-4.8); Anion Gap 9 (5-15); BUN/Creatinine Ratio 14.0 (10.0-20.0); Carbon Dioxide 25 mmol/L (20-31); Chloride 103 mmol/L (98-107); Magnesium 2.0 mg/dL (1.6-2.6); Potassium 3.6 mmol/L (3.5-5.1); Sodium 137 mmol/L (136-145); Total Protein 6.6 g/dL (5.7-8.2)
[2025-07-09 07:12] LABS: Bilirubin, Total 0.4 mg/dL (0.2-1.0)
[2025-07-09 07:28] LABS: Alanine Aminotransferase 54 U/L (7-40); Alkaline Phosphatase 139 U/L (46-116); Blood Urea Nitrogen 8 mg/dL (9-23); Calcium 8.2 mg/dL (8.7-10.4); Glucose 311 mg/dL (74-106)
[2025-07-09] MEDS: ENOXAPARIN SOD 40 MG/0.4 ML SYRINGE SC SCH (10:24)
[2025-07-09] MEDS: FOLIC ACID 1 MG TAB PO SCH (10:24)
[2025-07-09 11:17] LABS: Chloride 105 mmol/L (98-107); Potassium 3.7 mmol/L (3.5-5.1); Sodium 138 mmol/L (136-145)
[2025-07-09 11:18] LABS: Anion Gap 9 (5-15); Carbon Dioxide 24 mmol/L (20-31)
[2025-07-09 11:22] LABS: Calcium 8.3 mg/dL (8.7-10.4)
[2025-07-09 11:23] LABS: BUN/Creatinine Ratio 11.7 (10.0-20.0)
[2025-07-09 11:24] LABS: Blood Urea Nitrogen 7 mg/dL (9-23); Glucose 274 mg/dL (74-106)
[2025-07-09] MEDS: InsuLIN REG 1unit/0.01ml Soln (100units/ml) SC SCH ×4 (13:00→21:28)
[2025-07-09] MEDS ORDERED: PIPERACILLIN-TAZOB 3.375GM 100 ML IV SCH (13:00)
[2025-07-09 13:45] LABS: Chloride 105 mmol/L (98-107); Potassium 4.2 mmol/L (3.5-5.1); Sodium 138 mmol/L (136-145)
[2025-07-09 13:46] LABS: Anion Gap 9 (5-15); Carbon Dioxide 24 mmol/L (20-31)
[2025-07-09 13:47] LABS: Calcium 8.4 mg/dL (8.7-10.4)
[2025-07-09 13:51] LABS: BUN/Creatinine Ratio 14.5 (10.0-20.0)
[2025-07-09 13:53] LABS: Blood Urea Nitrogen 8 mg/dL (9-23); Glucose 253 mg/dL (74-106)
[2025-07-09] MEDS: POTASSIUM PHOSPHATE 22 MEQ in SODIUM CHL 0.9% 100 ML IV ONE (14:38)
--- NOTE | 2025-07-09 17:07 | DVHPNRES ---
Progress Note Date Seen: Jul 09, 2025 Resident Creating Document: VIMAL WALLACE RESIDENT Medical Necessity Reason Pt with a Central, PICC or Fol: No Subjective Review of Systems Brief history on arrival: This is a 30-year-old female with no significant past medical history, presented to the ER with chief complain of increased thirst, frequent voiding and dizziness since 1 week. Patient also reported associated bloody vision, nausea, diarrhea. She reports 10 episodes of diarrhea since last 1 week, described as watery stools, no blood seen. Patient also complains of burning micturition, associated with dysuria, increased frequency of micturition. Patient also reported daily headaches since last 1 year. Patient denies similar episodes in the past. Patient reports intermittent weakness in extremities, denies unilateral symptoms. PMHx: Borderline high blood glucose urine , no formal diagnosis of gestational diabetes mellitus Family history: Diabetes mellitus in father and sister Social history: Reports methamphetamine use (last used 2 days back), marijuana use (last used 2 weeks back), occasional smoking and alcohol. Lives in house with family. Full code. Home medication: Ibuprofen for headache Allergic history: No known allergies ROS: Constitutional: Denies weight loss, fever and chills. HEENT: Denies changes in vision and hearing. Respiratory: Denies shortness of breath and cough Cardiovascular: Chest heaviness. Denies chest discomfort or palpitations GI: Denies abdominal pain, nausea, vomiting and diarrhea. : Burning micturition, increased urinary frequency, increased thirst Musculoskeletal: Denies myalgias and joint pain Skin: Denies rash and pruritus. Neurological: Blurry vision, increased thirst, dizziness, anxiety 07/09/2025: Patient was seen at bedside today. Patient continues to complain of dysuria, anxiety. Objective vital signs Vital Sign Date Time Temp Pulse Resp B/P (MAP) Pulse Ox O2 Delivery O2 Flow Rate FiO2 07/09/25 13:20 81 21 95 Room Air* 0 21 07/09/25 13:20 98.5 140/69 (92) 98.5 Total Intake and Output 07/08/25 07/08/25 07/09/25 15:00 23:00 07:00 Intake Total 550 ml 120 ml Balance 550 ml 120 ml medications Current Medications Medications Dose Ordered Sig/Shun Route Start Time Stop Time Status Last Admin Dose Admin Ondansetron HCl 4 mg Q4HP PRN IV 07/08/25 20:30 07/09/25 01:05 4 MG Enoxaparin Sodium 40 mg DAILY SC 07/09/25 10:00 07/09/25 10:24 40 MG Acetaminophen 650 mg Q6HP PRN PO 07/08/25 20:30 Folic Acid 1 mg DAILY PO 07/09/25 10:00 07/09/25 10:24 1 MG Pantoprazole Sodium 40 mg DAILY@0600 PO 07/09/25 06:00 07/09/25 05:37 40 MG Folic Acid 1 mg/ Magnesium Sulfate 8 meq/ Multivitamins 10 ml/Thiamine HCl 100 mg/Sodium Chloride 1,013.2 ml @ 126.247 mls/hr DAILY@1800 INJ 07/09/25 18:00 Lorazepam 1 mg Q4H IV 07/08/25 21:15 07/09/25 13:42 1 MG Piperacillin Sod/ Tazobactam Sod 100 ml @ 25 mls/hr Q8H IV 07/09/25 13:00 Cancel Insulin Human Regular HS SC 07/09/25 22:00 Dextrose 50 ml UD PRN IV 07/09/25 11:15 Ceftriaxone Sodium 50 ml @ 100 mls/hr DAILY@09 IV 07/10/25 09:00 Insulin Glargine 10 units HS SC 07/10/25 22:00 Diagnostic Test (Pha) 1 strip ACHS 07/09/25 17:00 Insulin Human Regular AC SC 07/09/25 14:00 07/09/25 13:44 6 UNITS Examination General: Patient alert and oriented in person, place and time. Patient following commands. HEENT: Normocephalic, atraumatic, moist mucous membranes Respiratory/pulmonary: Clear lungs bilaterally, vesicular murmurs present in almost all lung zamora, no associated crackles or wheezes. Cardiovascular: Normal heart sounds S1 and S2 with no associated murmurs Abdomen: Abdomen nondistended, there is no pain to palpation in any of the abdominal quadrants, no palpable masses. Extremities: There is no peripheral edema present at the lower extremities. Peripheral Pulses: 3+ Radial (R). 3+ Radial (L). 3+ Dorsalis pedis (R). 3+ Dorsalis pedis(L) Skin: No rashes or pruritus, there is no sacral edema present at this time. Neurological: Intact cranial nerves with no focal neurologic deficits laboratory and microbiology Laboratory Tests 07/09/25 12:59 07/09/25 06:18 Test 07/09/25 12:59 Range/Units Serum Glucose 253 H 74-106 mg/dL Problem List/Assessment/Plan Problem List/Assessment/Plan Hyperosmolar hyperglycemic state Uncontrolled diabetes mellitus type 2, new diagnosis Initial labs show Blood sugar> 600, hemoglobin A1c 10.9, beta hydroxybutyrate 0.405 Given IV normal saline bolus and followed by maintenance Given insulin drip; switch to sliding scale insulin with basal insulin Monitor blood sugar Pending C-peptide level Acute Gastroenteritis Continue IV fluids Started on metronidazole, continue ceftriaxone (beta HCG negative for ) Monitor electrolytes Pending stool for WBC, stool bacterial culture, ova and parasite Complicated UTI Urinalysis positive for UTI Beta hCG negative for Pending urine culture Continue IV ceftriaxone Obesity class 3 BMI 43 Counseled on lifestyle and diet Monitor for JOHN complication, consider CPAP if needed Respiratory alkalosis Continue monitoring Pseudohyponatremia likely due to hypoglycemia Continue IV fluids History of alcoholism CIWA score Continue IV banana fluid Continue thiamine and folic acid Polysubstance abuse UDS positive for methamphetamine Patient counseled on cessation for more than 12 minutes DIET: Consistent carb DVT PROPHYLAXIS: Lovenox GI PROPHYLAXIS: Protonix CODE STATUS: Goals of care discussed with patient at bedside for more than 28 minutes. Full code DISPOSITION: Telemetry This medical document was created using an electronic medical record system with M[employer]rency direct computerized dictation system. Although this document has been carefully reviewed, there may still be some phonetic and typographical errors. These areas are purely typographical due to imperfections of the software programs, and do not reflect any compromise in the patient's medical care. Patient's status and plan discussed with the patient. Case discussed with Dr. Puri Plan discussed with: Patient (Family, nurses), Other (Family, nurses) My Orders My Orders Orders - VIMAL WALLACE RESIDENT Procedure Category Date Status Time Basic Metabolic Panel LAB 07/10/25 Verified 04:00 Complete Blood Count LAB 07/10/25 Verified 04:00 Insulin R (Human) PHA 07/09/25 In Process (Insulin R) 22:00 Dextrose 50% Syringe PHA 07/09/25 In Process 11:15 Ceftriaxone 1gm/50ml PHA 11/17/25 In Process (Rocephin) 09:00 Test, Urine LAB 07/09/25 Logged 13:53 Date of Service: Jul 09, 2025 Billing Provider: GALEN PURI MD Common Visit Codes: [id number] INP/OBS CARE(HIGH) VIMAL WALLACE RESIDENT Jul 09, 2025 17:07
[2025-07-09 17:21] LABS: Chloride 104 mmol/L (98-107); Potassium 4.2 mmol/L (3.5-5.1); Sodium 137 mmol/L (136-145)
[2025-07-09 17:22] LABS: Anion Gap 9 (5-15); Carbon Dioxide 24 mmol/L (20-31)
[2025-07-09] MEDS: ACETAMINOPHEN 325 MG TAB PO PRN (17:23)
[2025-07-09 17:27] LABS: BUN/Creatinine Ratio 15.2 (10.0-20.0)
[2025-07-09 17:29] LABS: Blood Urea Nitrogen 7 mg/dL (9-23); Calcium 8.4 mg/dL (8.7-10.4); Glucose 272 mg/dL (74-106)
[2025-07-09] MEDS: FOLIC ACID 1 MG, MAGNESIUM SULF SDV 50% 8 MEQ, MULTIPLE VITAMIN 10 ML, THIAMINE INJ 100... INJ SCH (18:14)
[2025-07-10] VITALS (7 sets, daily range): BP systolic 130–142; BP diastolic 69–95; PULSE 86–94; RESP 16–20; TEMP 36.9; O2SAT 95–97
[2025-07-10 06:30] LABS: Chloride 103 mmol/L (98-107); Potassium 3.9 mmol/L (3.5-5.1)
[2025-07-10 06:31] LABS: Anion Gap 8 (5-15); Carbon Dioxide 24 mmol/L (20-31)
[2025-07-10 06:32] LABS: Calcium 8.5 mg/dL (8.7-10.4); Sodium 135 mmol/L (136-145)
[2025-07-10 06:36] LABS: Hematocrit 36.6 % (36.0-46.0); Hemoglobin 12.4 g/dL (12.2-16.2); Mean Corpuscular Hemoglobin 30.4 pg (28.0-32.0); Mean Corpuscular Volume 89.3 fL (80.0-100.0); Nucleated Red Blood Cells % 0.1 %
[2025-07-10 06:41] LABS: BUN/Creatinine Ratio 10.0 (10.0-20.0); Blood Urea Nitrogen < 5 mg/dL (9-23); Glucose 291 mg/dL (74-106)
[2025-07-10] MEDS ORDERED: BUPIVACAINE HCL 50 ML ONE (09:12)
[2025-07-10] MEDS ORDERED: TRANEXAMIC ACID 20 ML ONE (09:12)
[2025-07-10] MEDS ORDERED: VANCOMYCIN HCL 1000 MG VL ONE (09:13)
[2025-07-10] MEDS ORDERED: KETOROLAC TROMETH 30 MG/ML 1ML VIAL ONE (09:15)
[2025-07-10] MEDS ORDERED: MORPHINE SULF PF 5 MG/10 ML VIAL ONE (09:15)
[2025-07-10] MEDS: INSULIN LANTUS (GLARGINE) 1 /0.01ml (100units/ml) SC SCH (09:33)
[2025-07-10] MEDS ORDERED: INSULIN LANTUS (GLARGINE) 1 /0.01ml (100units/ml) SC SCH ×2 (10:00→22:00)
[2025-07-10] MEDS ORDERED: INSLANTI SC (12:27)
[2025-07-10] MEDS ORDERED: FLUC200T PO (12:27)
[2025-07-10] MEDS ORDERED: LEVO500T91 PO (12:27)
[2025-07-10] MEDS ORDERED: BLOO-169 XX (13:21)
[2025-07-10] MEDS ORDERED: [UNRECOGNIZED DRUG - CODE] XX (13:21)
[2025-07-10] MEDS ORDERED: GLUC-224 VI (13:28)
[2025-07-10] MEDS ORDERED: INSU100I54 SC (13:32)
[2025-07-10] MEDS: MAGNESIUM OXIDE 400 MG TAB PO ONE (17:01)
[2025-07-10] MEDS: MULTIPLE VITAMIN TAB PO ONE (17:01)
[2025-07-10] MEDS: FOLIC ACID 1 MG TAB PO ONE (17:01)
[2025-07-10] MEDS: THIAMINE HCL 100 MG TAB PO ONE (17:01)
--- NOTE | 2025-07-10 18:16 | DVHDSRES ---
Discharge Summary Date of Admission Resident Creating Document: BIRDIE JONES RESIDENT Jul 08, 2025 at 20:19 Date of Discharge: Jul 10, 2025 Admitting Diagnosis Hyperosmolar hyperglycemic state Labs/Diagnostic Data: Laboratory Results Test 07/10/25 16:11 07/10/25 05:39 07/09/25 10:45 07/09/25 06:18 POC Glucose 328 mg/dl (70-106) White Blood Count 6.4 10^3/uL (4.4-10.8) Red Blood Count 4.10 10^6/uL (4.0-5.20) Hemoglobin 12.4 g/dL (12.2-16.2) Hematocrit 36.6 % (36.0-46.0) Mean Corpuscular Volume 89.3 fL (80.0-100.0) Mean Corpuscular Hemoglobin 30.4 pg (28.0-32.0) Mean Corpuscular Hemoglobin Concent 34.0 g/dL (32.0-36.0) Red Cell Distribution Width 13.9 % (11.8-14.3) Platelet Count 258 10^3/uL (140-450) Mean Platelet Volume 9.5 fL (6.9-10.8) Neutrophils (%) (Auto) 72.1 % (37.0-80.0) Lymphocytes (%) (Auto) 20.9 % (10.0-50.0) Monocytes (%) (Auto) 4.2 % (0.0-12.0) Eosinophils (%) (Auto) 2.0 % (0.0-7.0) Basophils (%) (Auto) 0.8 % (0.0-2.0) Neutrophils # (Auto) 4.6 10 ^3/uL (1.6-8.6) Lymphocytes # (Auto) 1.3 10 ^3/uL (0.4-5.4) Monocytes # (Auto) 0.3 10 ^3/uL (0-1.3) Eosinophils # (Auto) 0.1 10 ^3/uL (0-0.8) Basophils # (Auto) 0.1 10 ^3/uL (0-0.2) Nucleated Red Blood Cells 0.1 % Sodium Level 135 mmol/L (136-145) Potassium Level 3.9 mmol/L (3.5-5.1) Chloride Level 103 mmol/L (98-107) Carbon Dioxide Level 24 mmol/L (20-31) Anion Gap 8 (5-15) Blood Urea Nitrogen < 5 mg/dL (9-23) Creatinine 0.50 mg/dL (0.550-1.02) Glomerular Filtration Rate Calc 129 mL/min (>90) BUN/Creatinine Ratio 10.0 (10.0-20.0) Serum Glucose 291 mg/dL (74-106) Calcium Level 8.5 mg/dL (8.7-10.4) Serum Osmolality 296 mOsm/kg (278-298) Phosphorus Level 2.0 mg/dL (2.4-5.1) Beta HCG, Quantitative < 1.5 mIU/mL (1.5-4.2) Magnesium Level 2.0 mg/dL (1.6-2.6) Total Bilirubin 0.4 mg/dL (0.2-1.0) Aspartate Amino Transferase (AST) 45 U/L (13-40) Alanine Aminotransferase (ALT) 54 U/L (7-40) Alkaline Phosphatase 139 U/L (46-116) Total Protein 6.6 g/dL (5.7-8.2) Albumin 3.7 g/dL (3.2-4.8) Test 07/08/25 21:30 07/08/25 20:14 07/08/25 19:15 07/08/25 19:01 Lipase 38 U/L (12-53) Vitamin B12 Level 322 pg/mL (211-911) Vitamin D 25-Hydroxy 31.4 ng/mL (30.0-100) Folic Acid 18.10 ng/mL (>5.38) Plasma/Serum Blood Alcohol < 3.0 mg/dL (<10) Urine Color Colorless (Yellow) Urine Clarity Clear (Clear) Urine pH 6.0 (5.0-9.0) Urine Specific Welch 1.039 (1.001-1.035) Urine Protein Negative (Negative) Urine Ketones 1+ (Negative) Urine Blood 2+ /uL (Negative) Urine Nitrite Negative (Negative) Urine Bilirubin Negative (Negative) Urine Urobilinogen Normal mg/dL (Negative) Urine Leukocyte Esterase 2+ /uL (Negative) Urine RBC 5 /hpf (0 - 4) Urine Microscopic WBC 11 /HPF (0-5) Urine Squamous Epithelial Cells Few /hpf (<5) Urine Bacteria None seen /hpf (None Seen) Urine Yeast with Hyphae Present /hpf Urine Yeast (Budding) Moderate /hpf (None Seen) Urine Glucose 4+ mg/dL (Normal) Urine Opiates Screen Neg (NEGATIVE) Urine Fentanyl Screen Neg (NEGATIVE) Urine Barbiturates Screen Neg (NEGATIVE) Urine Phencyclidine Screen Neg (NEGATIVE) Urine Amphetamines Screen Pos (NEGATIVE) Urine Benzodiazepines Screen Neg (NEGATIVE) Urine Cocaine Screen Neg (NEGATIVE) Urine Cannabinoids Screen Neg (NEGATIVE) Blood Gas Specimen Type Arterial Blood Gas Sample Site Right radial Blood Gas Patient Temperature 37.0 Arterial Blood Date Drawn [id number] Arterial Blood pH 7.460 (7.350-7.450) Arterial Blood Partial Pressure CO2 28.9 mmHg (32.0-45.0) Arterial Blood Partial Pressure O2 90.1 mmHg (83.0-108.0) Arterial Blood HCO3 20.1 mmol/L (21.0-28.0) Arterial Blood Oxygen Saturation 96.4 % (94.0-98.0) Arterial Blood Base Excess -2.4 mmol/L (-2.0-3.0) Arterial Blood Oxyhemoglobin 94.8 % (94.0-98.0) Arterial Blood Carboxyhemoglobin 1.1 % (0.5-1.5) Arterial Blood Methemoglobin 0.6 % (0.0-1.5) Manoj Test Yes Blood Gas Total Hemoglobin 14.60 g/dL (12.0-16.0) Blood Gas Modality Room air FiO2 % 21.0 Hemoglobin A1c 10.9 % A1C (<5.7) Direct Bilirubin < 0.1 mg/dL (<0.3) Beta-Hydroxybutyric Acid 0.405 mmol/L (< 0.4) Thyroid Stimulating Hormone (TSH) 2.26 uIU/mL (0.55-4.78) Other Laboratory Tests 07/10/25 05:39 Brief Hx & Hospital Course: Josefa Avila is a 30-year-old female with no significant past medical history who presented to the ER with chief complaint of increased thirst, frequent voiding and dizziness since 1 week. Patient also reported associated blurry vision, nausea and diarrhea. She reported 10 episodes of diarrhea since last 1 week before admission, described as watery stools, no blood seen. Patient also complained of burning micturition, associated with dysuria, increased frequency of micturition. Patient also reported daily headaches since last 1 year. Patient denied similar episodes in the past. Patient reported intermittent weakness in extremities. Urinalysis was positive for UTI. Blood glucose level on admission was 669 and serum osmolality was 316, and she had respiratory alkalosis and pseudo hyponatremia likely due to hypoglycemia. She was started on insulin drip which was later transitioned to Lantus insulin 10 units HS with moderate insulin sliding scale. Lantus 5 units a.c. was added to the regimen on 07/10/2025. Her dysuria and frequency of micturition improved, white count went down. She was given diabetic education about dietary modifications, insulin regimen and regular Accu-Cheks. She was discharged home in a stable condition on levofloxacin and Diflucan p.o. for 7 days. All medications and recommendations were thoroughly explained to the patient and she demonstrated complete understanding of the same. 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 PMHx: Borderline high blood glucose urine , no formal diagnosis of gestational diabetes mellitus Family history: Diabetes mellitus in father and sister Social history: Reports methamphetamine use (last used 2 days back), marijuana use (last used 2 weeks back), occasional smoking and alcohol. Lives in house with family. Full code. Home medication: Ibuprofen for headache Allergic history: No known allergies Physical examination on the day of discharge was as follows: General: Patient alert and oriented in person, place and time. Patient following commands. HEENT: Normocephalic, atraumatic, moist mucous membranes Respiratory/pulmonary: Clear lungs bilaterally, no associated crackles or wheezes. Cardiovascular: Normal heart sounds S1 and S2 with no associated murmurs Abdomen: Abdomen nondistended, there is no pain to palpation in any of the abdominal quadrants, no palpable masses. Extremities: There is no peripheral edema present at the lower extremities. Peripheral Pulses: 3+ Radial (R). 3+ Radial (L). 3+ Dorsalis pedis (R). 3+ Dorsalis pedis(L) Skin: No rashes or pruritus, there is no sacral edema present at this time. Neurological: Intact cranial nerves with no focal neurologic deficits Operations or Procedures PROCEDURE(s): LIVUS - LIVER REASON: ELEVATED LFTS ORDER NUMBER(s): [id number], ACCESSION NUMBER(s): [id number] ULTRASOUND DOPPLER CLINICAL HISTORY: ELEVATED LFTS TECHNIQUE: Doppler examination of the abdomen was performed. COMPARISON: US ABDOMEN COMPLETE on DOS: 06/18/23 FINDINGS: Evaluation is limited due to overlying bowel gas. The liver measures 20.7 cm. There is increased hepatic echogenicity. There is hepatopetal flow. Small stones are seen within the gallbladder. The gallbladder wall measures 2 mm. There is no sonographic Montiel. sign. Common bile duct measures 5 mm. The right kidney measures 12.3 cm without calculi, hydronephrosis, or renal mass. IMPRESSION: 1. Cholelithiasis without sonographic evidence of acute cholecystitis. Condition at Discharge: Fair Final Diagnosis/Problems List Hyperosmolar hyperglycemic state Uncontrolled diabetes mellitus type 2, new diagnosis Acute Gastroenteritis, likely bacterial Complicated UTI Obesity class 3,BMI 46.6 Hepatic steatosis Cholelithiasis without cholecystitis Respiratory alkalosis Pseudohyponatremia likely due to hypoglycemia History of alcoholism Polysubstance abuse Discharge Disposition: Home Discharge Instruct/Medications Diet: Consistent carbohydrate Activity: No Restrictions, As Tolerated Follow Up/Referral: follow up in dc clinic in 1-2 weeks follow up with PCP in 1-2 weeks Scheduled Cephalexin ( Keflex 500), 1 CAP PO TID Cephalexin Monohydrate (Cephalexin), 500 MG PO Q12HR, (Reported) Fluconazole (Diflucan), 1 TAB PO DAILY Glucose Blood (Easy Touch Glucose Test S), 1 KIT ACHS Insulin Glargine (Lantus), 15 UNIT SC HS Insulin Lispro (Insulin Lispro Kwikpen), 5 UNIT SC AC Levofloxacin Hemihydrate (Levofloxacin), 1 TAB PO DAILY Sulfamethoxazole-Trimethoprim (Bactrim), 1 TAB PO BID, (Reported) Scheduled PRN Ibuprofen (Ibuprofen), 800 MG PO Q6HP PRN for MILD PAIN OR TEMP>100.4, (Reported) Durable Medical Equipment Blood Glucose Monitoring Suppl (Easy Touch Glucose Monito), KIT XX, (DME) Discharge Statement: "Patient was advised to return to the ER or call 911 if any headaches, dizziness, shortness of breath, chest pain, abdominal pain, bleeding, fevers, or worsening of medical condition. Patient was counseled about treatment plan, medications, possible side effects, patientverbalized understanding. All questions were answered to the best of my ability. This discharge took greater then 30 minutes in planning, reviewing documentation, counseling the patient, and discussing with other team members." ASSESSMENT ASSESSMENT Assessment Hyperosmolar Hyperglycemis state Date of Service: Jul 10, 2025 Billing Provider: GALEN FOWLER MD Common Visit Codes: [id number] DISCH DAY >30min BIRDIE JONES RESIDENT Jul 10, 2025 18:16 GALEN FOWLER MD Jul 10, 2025 22:29
[2025-07-11] MEDS ORDERED: THIAMINE HCL 100 MG TAB PO SCH (10:00)
[2025-07-11] MEDS ORDERED: MULTIPLE VITAMIN TAB PO SCH (10:00)
[2025-07-11] MEDS ORDERED: FOLIC ACID 1 MG TAB PO SCH (10:00)
[2025-07-11] MEDS ORDERED: MAGNESIUM OXIDE 400 MG TAB PO SCH (10:00)
== END 2025-07-10 18:02 | disposition home or self-care (01) | DRG 420 ==
LOC: ER 18:47 → OVERFLOW 20:19 → TELE-CENTR 07-09 17:53
PROVIDERS: ADMIT Internal Medicine; ATTEND Internal Medicine
DX: E11.00 Type 2 diabetes mellitus with hyperosmolarity without nonketotic hyperglycemic-hyperosmolar coma (NKHHC) (principal); E87.3 Alkalosis; A04.9 Bacterial intestinal infection, unspecified; N39.0 Urinary tract infection, site not specified; Z68.42 Body mass index [BMI] 45.0-49.9, adult; F15.10 Other stimulant abuse, uncomplicated; K76.0 Fatty (change of) liver, not elsewhere classified; E11.649 Type 2 diabetes mellitus with hypoglycemia without coma; E66.813 Obesity, class 3; K80.20 Calculus of gallbladder without cholecystitis without obstruction; R16.0 Hepatomegaly, not elsewhere classified; Z98.891 History of uterine scar from previous surgery; Z83.3 Family history of diabetes mellitus; Z79.4 Long term (current) use of insulin
CPT/HCPCS: 36415; 36600; 76705; 80048; 80053; 80076; 80307; 80320; 81001; 82010; 82306; 82607; 82746; 82805; 82962; 83036; 83690; 83735; 83930; 84100; 84443; 84702; 85025; 87040; 87086; 96361; 96374; 99291; G0378; J1815; J1885; J2405; J2543; J3480; J3490; J7060